=== PATIENT | male | born 1975 | race African-American/Black ===

== ENCOUNTER 2025-01-24 12:44 | Emergency (ER) | payer OTHER, SELFPAY ==
[2025-01-24 12:46] VITALS: BP 108/73; PULSE 80; RESP 18; TEMP 36.6; O2SAT 94; BMI 28.5
--- NOTE | 2025-01-24 13:51 | ED.CHESTPAIN ---
HPI - Chest Pain General Chief Complaint: Chest Pain Stated Complaint: Chest pain, dizziness, L side neck pain Time Seen by Provider: 01/24/25 13:24 History of Present Illness HPI narrative: This 49-year-old male is visiting here on a work project. He lives in [place]. He comes in reporting some chest discomfort along his left sternal border. This occurred about an hour and half prior to arrival when he was doing some moderate activity. He states that he can tolerate lots of activity without symptoms. He did have a recent very thorough cardiac workup and was noted to have a reduced ejection fraction at around 30%. 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 He did have an angiogram few months ago showing no sign of coronary artery disease. He does have cardiac risk factor of type 2 diabetes. He states that he has lost weight and he is doing better in that regard. Currently does not have any pain and arrives here with normal vital signs. He thinks that he got worked up some with anxiety regarding these symptoms. He does not report any nausea, vomiting, lightheadedness, shortness of breath, or diaphoresis. He does have good exercise tolerance. Related Data Home Medications ?Medication ?Instructions ?Recorded ?Confirmed carvedilol 3.125 mg tablet 6.25 mg PO BID 12/21/24 01/24/25 dapagliflozin propanediol 10 mg 10 mg PO QAM 12/21/24 01/24/25 tablet (Farxiga) sacubitril 24 mg-valsartan 26 mg 1 tab PO BID 12/21/24 01/24/25 tablet (Entresto) spironolactone 25 mg tablet 25 mg PO QDAY 12/21/24 01/24/25 Allergies Allergy/AdvReac Type Severity Reaction Status Date / Time No Known Drug Allergies Allergy Verified 01/24/25 12:54 Review of Systems Status of ROS Reports: 10 or more systems reviewed and unremarkable except as noted in History and below Narrative Constitutional: No fevers, no weight gain or loss. Eyes: No discharge. No vision changes. HENT: No congestion, no sore throat, no ear pain. Cardiovascular: No palpitations. Respiratory: No shortness of breath, no wheezes, no cough. Gastrointestinal: No abdominal pain, no vomiting, no diarrhea. Genitourinary: No dysuria, no hematuria. Musculoskeletal: Normal range of motion. Skin: No rashes, no pruritis. Neurological: No dizziness, weakness, sensory change, speech change. Endo/Heme/Allergies: No bruising or bleeding. No polydipsia. Pysch: no suicidality, no anxiety, no insomnia. All other systems reviewed and are negative. Exam Narrative Exam Narrative: Constitutional: Well-developed, well-nourished, no acute distress. HEENT: Normocephalic, atraumatic. Neck: Normal range of motion. Nontender. Supple. Heart: Regular. No murmurs. Normal rate. Intact distal pulses. Lungs: Clear to auscultation. No chest discomfort. No wheezes, rhonchi, or rales. Abdomen: Normal bowel sounds. Nontender. No rebound tenderness. Genitalia: Deferred. Back: No midline tenderness. Normal range of motion. Extremities: Normal range of motion. No injury. Skin: Intact. No rash. Warm. No erythema or pallor. Neurologic: No altered sensation. No weakness. Alert and oriented. Psychiatric: No suicidality. No anxiety or depression. No insomnia. Nursing notes and vitals signs are reviewed. Const Vital Signs, click to edit/add: Vital Signs - 24 hr 01/24/25 12:46 Temperature 97.9 F Pulse Rate [Pulse Oximeter] 80 Respiratory Rate 18 Blood Pressure [Right Upper Arm] 108/73 Pulse Oximetry 94 Oxygen Delivery Method Room Air Course Vital Signs Vital signs: Initial Vital Signs Temperature 97.9 F 01/24/25 12:46 Temperature Source Temporal Artery Scan 01/24/25 12:46 Pulse Rate 80 01/24/25 12:46 Respiratory Rate 18 01/24/25 12:46 Blood Pressure 108/73 01/24/25 12:46 Blood Pressure Mean 84 01/24/25 12:46 Blood Pressure Position Sitting 01/24/25 12:46 Pulse Oximetry 94 01/24/25 12:46 Oxygen Delivery Method Room Air 01/24/25 12:46 Vital Signs Temperature 97.9 F 01/24/25 12:46 Pulse Rate 80 01/24/25 12:46 Respiratory Rate 18 01/24/25 12:46 Blood Pressure 108/73 01/24/25 12:46 Pulse Oximetry 94 01/24/25 12:46 Oxygen Delivery Method Room Air 01/24/25 12:46 Temperature 97.9 F 01/24/25 12:46 Pulse Rate 80 01/24/25 12:46 Respiratory Rate 18 01/24/25 12:46 Blood Pressure 108/73 01/24/25 12:46 Pulse Oximetry 94 01/24/25 12:46 Oxygen Delivery Method Room Air 01/24/25 12:46 MDM - Chest Pain MDM Narrative Medical decision making narrative: This patient comes in reporting an episode of chest discomfort as described above. He thinks that his fellow workers got him worked up and he states that he feels back to normal and thinks that this was likely amplified with anxiety symptoms. 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 However he states that he can tolerate good amounts of activity and exercise. I did recommend EKG and labs but the patient is saying that he had recent labs and full workup with normal results other than the reduced ejection fraction. He is declining any further workup at this time. Discharge Plan Discharge Clinical Impression: Atypical chest pain Patient Disposition: Home, Self-Care Condition: Improved Additional Instructions: Continue current plans. Follow up with MD return if symptoms recurrent or worsening. Prescriptions: No Action spironolactone 25 mg tablet 25 mg PO QDAY carvedilol 3.125 mg tablet 6.25 mg PO BID Rx Instructions: Take one tablet in the morning and two tablets in the evening. dapagliflozin propanediol [Farxiga] 10 mg tablet 10 mg PO QAM sacubitril-valsartan [Entresto] 24-26 mg tablet 1 tab PO BID Follow Up/Referrals: Provider,Not a Local [Primary Care Provider, Family Practice] Stand Alone Forms: Airtime Info Instructions
== END 2025-01-24 14:08 | disposition home or self-care (01) ==
LOC: ED 14:03
PROVIDERS: Emergency Provider Emergency Medicine Emergency Medical Services
DX: R07.9 Chest pain, unspecified (principal)
CPT/HCPCS: 99284